=== PATIENT | female | born 1990 | race Caucasian/White ===

== ENCOUNTER 2019-07-12 03:50 | Emergency (ER) | payer MEDICAID ==
[~2019-07-12] VITALS: Ht 165.1 cm; Wt 60.3 kg
--- NOTE | 2019-07-12 04:40 | NUR ---
BIB FAMILY FOR C/O L EAR PAIN.
[2019-07-12] MEDS ORDERED: IBUPROFEN 600 MG TABLET PO ONE ×2 (04:46→05:00)
[2019-07-12 05:24] VITALS: BP 119/80
--- NOTE | 2019-07-12 05:24 | NUR ---
Patient discharged to home in stable condition. Rx and Written and verbal after care instructions given. Patient verbalizes understanding of instruction.
== END 2019-07-12 05:25 | disposition home or self-care (01) ==
LOC: ER 03:53
DX: H66.92 Otitis media, unspecified, left ear (principal)
CPT/HCPCS: 84703-TC